=== PATIENT | male | born 1960 | race Caucasian/White ===

== ENCOUNTER 2019-01-13 10:39 | Inpatient (IN) ==
--- NOTE | 2019-01-13 09:15 | Anesthesia Evaluation PreOp ---
Date of Encounter: 01/13/19 Time of Encounter: 11:26 - Past History Planned Operation: Right Total Shoulder Cardiac History: HTN, Hyperlipidemia Pulmonary History: Smoker, Snore, SONIYA Dx (uses CPAP) NIGHT SUPERVISOR History: Denies Any Significant HX Other Medical History: Diabetes Type II, Thyroid Anesthesia History: No Prior Anesthetic Complications, Past Anesthesia Alcohol Use: occasionally Drug use: none Medications and Allergies Acetaminophen [Pain Relief] 500 mg PO Q6H 7 Days #28 tablet 01/13/19 [Rx] Clindamycin [Cleocin] 150 mg PO Q6HR 2 Days #7 capsule 01/13/19 [Rx] Docusate [Colace] 100 mg PO BID 5 Days #10 capsule 01/13/19 [Rx] OxyCODONE Immed Rel [Roxicodone 5 MG] 5 mg PO Q6HR PRN 5 Days #20 tablet 01/13/19 [Rx] Allergy/AdvReac Type Severity Reaction Status Date / Time No Known Allergies Allergy Verified 01/07/19 11:49 - Meds/Allergy Pre-op Review Medications Reviewed: Yes Allergies Reviewed: Yes Beta Blockers on Current Med List: No Anesthesia Results - Labs Laboratory Tests 11/11/18 01/07/19 01/07/19 09:06 11:57 11:57 WBC 7.8 Hgb 14.5 Hct 43.8 Plt Count 241 PT 10.4 INR 0.9 APTT 28.4 Sodium Potassium BUN Creatinine 0.88 01/07/19 11:57 WBC Hgb Hct Plt Count PT INR APTT Sodium 137 Potassium 4.0 BUN 16 Creatinine - Imaging EKG: report reviewed (01/07/2019 SINUS RHYTHM POSSIBLE RIGHT VENTRICULAR CONDUCTION DELAY) Anesthesia Exam O2 Sat Height 1.78 m Weight 125.645 kg O2 Sat by Pulse Oximetry 95 Vital Signs Temp Pulse Resp BP Pulse Ox 97.7 F 58 18 122/81 95 01/13/19 11:02 01/13/19 11:02 01/13/19 11:02 01/13/19 11:02 01/13/19 11:02 Blood Glucose* 162 Height: 5'10" Weight: 277 lbs NPO (# of Hours): 8 Pain Scale: 0 Pain Scale Used: Numeric (1 - 10) - HEENT Pupil (Motor): EOMI Mallampati: III Teeth: Normal Oral Opening: Greater than 3 - NIGHT SUPERVISOR LOC: Oriented NIGHT SUPERVISOR Motor: Normal LUE, Normal RLE, Normal LLE, Normal Face, Deficit RUE NIGHT SUPERVISOR Sensory: Normal: RUE, LUE, RLE, LLE, Face - Cardiac Rhythm: Regular Murmur: None - Pulmonary Breath Sounds: bilateral Clear Respiratory Effort: Symmetrical Anesthesia Assess/Plan ASA Score: 3 Level of consciousness: Cooperative, Oriented, Tranquil Anesthetic Plan: General, Regional Nerve Block (post-op pain) Regional Nerve Block Plan: Supraclavicular Monitoring Plan: Standard Monitors Recovery Plan: PACU
--- NOTE | 2019-01-13 10:01 | Discharge Summary ---
<Dami Card M - Last Filed: 01/13/19 09:58> Date of Encounter: 01/13/19 - Discharge Diagnosis (1) Right shoulder pain Priority: Primary Status: Acute Qualifiers: Chronicity: unspecified Qualified Code(s): M25.511 - Pain in right shoulder (2) Status post reverse arthroplasty of right shoulder Priority: Primary Status: Acute - Hospital Course Hospital course: Mr. Blanco is a 58 year old male - Time Spent with Patient Total time spent providing and/or coordinating discharge services: - Discharge Medications Prescriptions: New Docusate [Colace] 100 mg PO BID 5 Days #10 capsule Acetaminophen [Pain Relief] 500 mg PO Q6H 7 Days #28 tablet OxyCODONE Immed Rel [Roxicodone 5 MG] 5 mg PO Q6HR PRN 5 Days #20 tablet PRN Reason: Severe Pain Continued Metformin HCl 1,000 mg PO BID Pioglitazone [Actos] 45 mg PO DAILY SitaGLIPtin [Januvia] 100 mg PO DAILY Simvastatin [Zocor] 40 mg PO HS Montelukast [Singulair] 10 mg PO HS Lisinopril [Zestril] 10 mg PO DAILY Levothyroxine Sodium 150 mcg PO QAM Insulin Glargine,Hum.rec.anlog [Basaglar Kwikpen U-100] 10 unit SQ QAM BuPROPion [Wellbutrin] 100 mg PO BID Glimepiride [Amaryl] 6 mg PO DAILY Home Medications: Acetaminophen [Pain Relief] 500 mg PO Q6H 7 Days #28 tablet 01/13/19 [Rx] BuPROPion [Wellbutrin] 100 mg PO BID 01/13/19 [History] Docusate [Colace] 100 mg PO BID 5 Days #10 capsule 01/13/19 [Rx] Glimepiride [Amaryl] 6 mg PO DAILY 01/13/19 [History] Insulin Glargine,Hum.rec.anlog [Basaglar Kwikpen U-100] 10 unit SQ QAM 01/13/19 [History] Levothyroxine Sodium 150 mcg PO QAM 01/13/19 [History] Lisinopril [Zestril] 10 mg PO DAILY 01/13/19 [History] Metformin HCl 1,000 mg PO BID 01/13/19 [History] Montelukast [Singulair] 10 mg PO HS 01/13/19 [History] OxyCODONE Immed Rel [Roxicodone 5 MG] 5 mg PO Q6HR PRN 5 Days #20 tablet 01/13/19 [Rx] Pioglitazone [Actos] 45 mg PO DAILY 01/13/19 [History] Simvastatin [Zocor] 40 mg PO HS 01/13/19 [History] SitaGLIPtin [Januvia] 100 mg PO DAILY 01/13/19 [History] Allergies/Adverse Reactions: Allergy/AdvReac Type Severity Reaction Status Date / Time No Known Allergies Allergy Verified 01/07/19 11:49 - Patient Status Disposition: Home, Self-Care Condition: Good - Discharge Instructions Follow Up With: Leo Ortiz DO [Primary Care Provider] - <Alia Pop - Last Filed: 01/14/19 18:00> Orders not resulted at time of discharge: Pending orders 01/13/19 14:05 Surgical Pathology [PTH] Routine Date of Encounter: 01/14/19 Time of Encounter: 17:54 - Discharge Diagnosis (1) Status post reverse arthroplasty of right shoulder Priority: Primary Status: Acute (2) Rotator cuff arthropathy of right shoulder Priority: Primary Status: Chronic (3) Diabetes mellitus Priority: Secondary Status: Chronic Qualifiers: Diabetes mellitus type: type 2 Diabetes mellitus mcc insulin use: unspecified mcc insulin use status Diabetes mellitus complication status: without complication Qualified Code(s): E11.9 - Type 2 diabetes mellitus without complications (4) HTN (hypertension) Priority: Secondary Status: Chronic Qualifiers: Hypertension type: unspecified Qualified Code(s): I10 - Essential (primary) hypertension (5) SONIYA (obstructive sleep apnea) Priority: Secondary Status: Chronic (6) HLD (hyperlipidemia) Priority: Secondary Status: Chronic Qualifiers: Hyperlipidemia type: unspecified Qualified Code(s): E78.5 - Hyperlipidemia, unspecified (7) Tobacco use Priority: Secondary Status: Chronic (8) Obesity (BMI 30-39.9) Priority: Secondary Status: Chronic - Hospital Course Hospital course: Mr. Blanco is a 58 year old male status post right TSR reverse 01/13/19 with medical history of DM2, HTN, SONIYA, HLD, tobacco use, obesity. Patient was evaluated and deemed stable for discharge by Dr. Kearns on day of surgery. He is set up for outpatient therapy upon discharge.Patient will follow up in [facility] office next week for reevaluation. - Time Spent with Patient Total time spent providing and/or coordinating discharge services: Date of admission: 01/13/19 16:06 Primary care physician: Leo Ortiz DO Consults: 01/13/19 15:40 Consult to Physical Therapy [CONS] Routine Comment: post shoulder surgery Reason for Consult: post shoulder surgery Does patient have active BEDREST order?: No Is patient medically & hemodynamically stable?: Yes Consult to Visual Designer [CONS] Routine Reason for SW Consult: shoulder surgery RT Post Op Consult [CONS] Routine Discharging clinician: Epifanio Keanrs Anticipated date of discharge: 01/13/19 - Impressions ITS Impressions Shoulder X-Ray 01/13/19 15:39 IMPRESSION: Status post reverse right shoulder arthroplasty as described above. D/ / 01/13/2019 15:49:24 Duane Suarez MD / Lazara Henry Interpreting Provider: Duane Suarez MD - Patient Status Functional capacity at discharge: independent ambulation Overall status at discharge: patient is back to baseline - Diet and Activity Activity: as per physical therapy Diet: advance to your usual diet
[2019-01-13] MEDS ORDERED: ROPIVACAINE/PF/NS 0.25% 1 EACH SYRINGE INTRAART ONE (11:12)
--- NOTE | 2019-01-13 11:26 | History & Physical Report ---
Date of Encounter: 01/13/19 Time of Encounter: 11:26 24 Hour HP Update - Instructions Instructions: If the History and Physical is less than 30 days old and was completed prior to A.M. admission and or procedure and has NOT been updated on calendar day of procedure please complete this update prior to performing procedure. - Update Patient reports changes in Medical Condition: No Changes in examination, assessment, or condition: No Changes in Medication: No Preop tests/diagnostics Reviewed: Yes Surgery Remains Indicated: Yes Consent for Planned Operative Procedure(s) Verified: Yes - Pre-Operative Checklist Preoperative Checklist Indicated: No Prophylactic Antibiotic Ordered: Yes Is VTE Prophylaxis Indicated?: Yes
[2019-01-13] MEDS ORDERED: CeFAZolin Syr 2,000MG/20 ML 2,000 MG/20 ML SYRINGE IVPB ONE (11:34)
[2019-01-13] MEDS ORDERED: Albuterol 2.5 MG/3 ML NEBULIZER IH ONE (11:34)
[2019-01-13] MEDS ORDERED: *HR* OxyCODONE Immed Rel 5 MG TABLET PO PRN ×2 (11:43→15:40)
[2019-01-13] MEDS ORDERED: Ondansetron 4 MG/2 ML VIAL IVP ONE (11:43)
[2019-01-13] MEDS ORDERED: Ringers Solution, Lactated 1,000 ML IVC SCH ×2 (11:45→15:40)
[2019-01-13] MEDS ORDERED: *HR* Succinylcholine 200 MG/10 ML VIAL IVP ONE (11:52)
[2019-01-13] MEDS ORDERED: *HR* FentaNYL (PF) 100 MCG/2 ML VIAL ONE ×2 (11:52→12:45)
[2019-01-13] MEDS ORDERED: Dexamethasone 4 MG/ML VIAL ONE (11:52)
[2019-01-13] MEDS ORDERED: Lidocaine -MPF 2% 2 ML VIAL ONE (11:52)
[2019-01-13] MEDS ORDERED: Ondansetron 4 MG/2 ML VIAL ONE (11:52)
[2019-01-13] MEDS ORDERED: *HR* Midazolam HCl 2 MG/2 ML VIAL ONE ×2 (11:53→12:45)
[2019-01-13] MEDS ORDERED: *HR* Propofol 200 MG/20 ML VIAL IVP ONE (11:53)
[2019-01-13] MEDS ORDERED: Ethanol\\Acetic Acid\\Na Ace\\Ben 1,000 ML IRRIG.SOLN IR ONE (12:44)
--- NOTE | 2019-01-13 12:57 | Anesthesia Procedures ---
Date of Encounter: 01/13/19 Time of Encounter: 12:45 Procedures: Anesthesia - Nerve Block Procedure Date: 01/13/19 Time: 12:45 Allergies/Adv Reactions: NKA Pre-op Diagnosis: Right shoulder rotator cuff arthropathy Surgical Procedure: Right total shoulder replacement, reverse Checklist: Correct Patient Identifier, Correct procedure, History checked Correct side: Right Blood Thinner: No Monitor Applied: EKG, BP, Pulse Oximetry Supplemental Oxygen via Nasal Cannula (L/min): 2 Sedation: Versed (mg): 2 Indication: Post Op Analgesia Pre-op Neuro Deficits: No Block Type: Supraclavicular, Other (SCP/ICB) Catheter placed: No Sterile Technique: Yes Ultrasound used: Yes Anatomy identified: Yes Visual spread of Local: Yes Neuro Stimulation: Yes Nerve Stimulator Range: 0.2 - 0.4 mA Blood on Needle Aspiration: No Smooth Injection of Local: Yes Pain with Injection of Local: No Prep: Chlorhexadine Needle: 22 x 50 mm Stimuplex Local: Ropivacaine (Ropivicaine 0.5% 30ml supraclavicular, 0.25% Ropivicaine 20ml SCP/ICB), Other (Decadron 8mg) Volume (cc): 50ml Number of Attempts: 1 Complications: None/effective block Vitals: Vital Signs Temperature 97.7 F 01/13/19 11:02 Pulse Rate 58 01/13/19 11:02 Respiratory Rate 18 01/13/19 11:02 Blood Pressure 122/81 01/13/19 11:02 O2 Sat by Pulse Oximetry 95 01/13/19 11:02 Temperature 97.7 F 01/13/19 11:02 Pulse Rate 59 01/13/19 12:45 Respiratory Rate 16 01/13/19 12:45 Blood Pressure 126/81 01/13/19 12:45 O2 Sat by Pulse Oximetry 98 01/13/19 12:45
[2019-01-13] MEDS ORDERED: Lidocaine HCL 4 ML Topical Solution (Laryng-O-Jet Kit Sterile Pak) TP ONE (13:17)
[2019-01-13] MEDS ORDERED: EPHEDrine 50 MG/ML VIAL ONE (13:34)
--- NOTE | 2019-01-13 14:09 | Orthopedic Operative Note ---
Date of procedure: 01/13/19 Pre-op diagnosis: Right shoulder cuff tear arthropathy Post-op diagnosis: same Procedure: Procedure: Total Shoulder Replacment Reverse, right Estimated blood loss: 100 cc Hardware: Metal and polyethylene replacement: Arthrex 28, +4 , 30 mm post glenoid baseplate, 4 locking 5.5 screw, 42/+4 glenosphere, 12 Scarborough humeral stem, poly insert 6 Exam Under anesthesia: Full motion no instability Procedural Notes: Irreparable rotator cuff tear Operative procedure: The patient was brought to the operating room and placed on the operating room table. After general anesthesia was administered the operative shoulder was examined. Findings were noted. The patient was placed in the modified beachchair position. All pressure points were padded appropriately. And the head was stabilized in the neutral position. The operative extremity was preppe d and draped in the sterile surgical fashion. The patient received IV antibiotics prior to skin incision. A standard deltopectoral approach was made to the operative shoulder. Incision was made to the skin and subcutaneous tissue,hemo stasis was obtained with Bovie cautery. Using careful blunt dissection the cephalic vein was identified and mobilized medially. The deltopectoral interval was developed and the clavipectoral fascia was incised. The subscap was released off the lesser tuberosity and tagged with #2 FiberWire suture subscap was irreparable. The humerus was dislocated patient noted to have irreparable tear supraspinatus tendon, and the humeral cut was made along the anatomic neck. Anterior and posterior Bankart retractors were placed to expose the glenoid. The glenoid nori de was seated and the centering hole was made. It was reamed with the appropriate reamer. The baseplate was seated and secured with 4 locking 5.5 screw. The baseplate was irrigated and dried and the Glenosphere was seated and secured with the Patel taper. The Patel taper was tested and found to be secure, glenosphere fixation was secondarily secured with the central screw. The humerus was redislocated and prepared with the diaphyseal reamers, followed by a broaching process up to the appropriate size Scarborough stem in the patient's anatomic version. The metaphyseal reamer was then utilized. Trial reduction found the shoulder to be relocatable. Trial components were removed and the Scarborough stem was impacted in place in the patient's anatomic version. Trial reduction found the shoulder to be relocatable and stable with the appropriate poly. Trial component was removed and the real implant was seated and secured the shoulder was reduced. The shoulder had excellent motion and excellent stability and no evidence of dislocation. The deep tissue was irrigated with pulse irrigation. The PA close the shoulder. The deltopectoral interval was closed with a running #1 PDS suture, subcutaneous tissue was irrigated and closed with 0 PDS suture, the skin was closed with Dermabond. The patient was placed in a sterile dressing, abduction brace and extubated. The patient was then transferred to the recovery room in stable condition. Anesthesia: GETA Surgeon: Epifanio Kearns Was there an visitor service assistant present: Yes Project Buyer: Dami Card Estimated blood loss (cc): 100 Condition: stable Disposition: PACU
[2019-01-13] MEDS: *HR* HYDROmorphone (PF) 1 MG/ML SYRINGE IVP PRN ×2 (14:50→14:55)
--- NOTE | 2019-01-13 15:15 | Anesthesia Evaluation Post Op ---
Date of Encounter: 01/13/19 Time of Encounter: 15:15 - Vital Signs Vital Signs: Vital Signs/O2 Sat/Glucose, Most Current Temp Pulse Resp BP Pulse Ox 01/13/19 15:05 64 14 127/80 94 01/13/19 14:55 97.0 F L 62 14 134/84 95 01/13/19 14:45 61 14 134/90 93 01/13/19 14:35 65 16 124/81 92 01/13/19 14:25 97.6 F 68 24 133/81 95 01/13/19 13:11 60 16 122/81 93 01/13/19 12:55 62 16 124/78 94 01/13/19 12:45 59 16 126/81 98 - Lungs Lungs: Clear Ascult./Percussion - Airway Airway: Non-obstructed - Cardiovascular Regular Rate, Baseline Rhythm - Mental Status Mental Status: Alert & Oriented, Answers Appropriately - Pain Pain Scale: 3 Pain Scale used: Numeric (1 - 10) - Nausea Vomiting Nausea Vomiting: Not Present - Hydration Hydration: Tolerates oral liquids, Ice chips, Able to void - Discharge PostOp Status: Transfer Patient to floor
[2019-01-13 15:16] LABS: Hematocrit 40.1 % (37.5-50.1); Hemoglobin 13.5 g/dL (12.9-16.9)
[2019-01-13] MEDS ORDERED: Sennosides 8.6 MG TABLET PO PRN (15:40)
[2019-01-13] MEDS ORDERED: Ondansetron 4 MG/2 ML VIAL IVP PRN (15:40)
[2019-01-13] MEDS ORDERED: *HR* OxyCODONE/APAP 5/325 TABLET PO PRN (15:40)
[2019-01-13] MEDS ORDERED: traMADol 50 MG TABLET PO PRN (15:40)
[2019-01-13] MEDS ORDERED: MOM Conc 10 ML UD.LIQ PO PRN (15:40)
[2019-01-13] MEDS ORDERED: Naloxone 0.4 MG/ML INJ IVP PRN (15:40)
[2019-01-13] MEDS ORDERED: FLU Vac QV 19-20 (6Month+)/PF 0.5 ML SYRINGE IM ONE (17:57)
[2019-01-13] MEDS ORDERED: *HR* Enoxaparin 30 MG/0.3 ML SYRINGE SQ SCH ×2 (18:00)
[2019-01-13 19:08] VITALS: BP 123/76
[2019-01-13] MEDS ORDERED: Temazepam 15 MG CAPSULE PO PRN (21:00)
== END 2019-01-13 18:40 | disposition home or self-care (01) | DRG 483 ==
LOC: SAMDAY 10:39 → 3NENU 16:06
PROVIDERS: ADMIT Orthopaedic Surgery; ATTEND Orthopaedic Surgery